=== PATIENT | female | born 1970 | race Caucasian/White ===

== ENCOUNTER 2018-10-15 13:27 | Emergency (ER) | payer OTHER ==
[~2018-10-15] VITALS: Ht 157.5 cm; Wt 79.4 kg
--- NOTE | 2018-10-15 13:40 | NUR ---
PATIENT ARRIVED AT UNIT [facility]. A&O X 4. NO ACUTE DISTRESS. WITH C/O MIGRAINE HEADACHE STARTED ON FRIDAY, PAIN IS SAME YESTERDAY, PAIN SCALE OF 8/10.
[2018-10-15] MEDS ORDERED: KETOROLAC TROMETHAMINE INJ 30 MG/ML VIAL IV ONE (14:30)
[2018-10-15] MEDS ORDERED: diphenhydrAMINE HCL 50 MG/ML VIAL IV ONE (14:30)
[2018-10-15] MEDS ORDERED: IV NS 0.9% 1,000 ML BAG IV ONE (14:30)
[2018-10-15] MEDS ORDERED: METOCLOPRAMIDE HCL 10 MG/2 ML VIAL IV ONE (14:30)
[2018-10-15] MEDS ORDERED: diphenhydrAMINE HCL 50 MG/ML VIAL ONE (14:40)
[2018-10-15] MEDS ORDERED: METOCLOPRAMIDE HCL 10 MG/2 ML VIAL ONE (14:41)
[2018-10-15] MEDS ORDERED: KETOROLAC TROMETHAMINE INJ 30 MG/ML VIAL ONE (14:41)
--- NOTE | 2018-10-15 15:00 | NUR ---
DR BEARD AT BEDSIDE
[2018-10-15] MEDS ORDERED: ACETAMINOPHEN 325 MG TABLET PO ONE (15:30)
[2018-10-15] MEDS ORDERED: ACETAMINOPHEN ES 500 MG TABLET ONE (15:32)
[2018-10-15 16:22] VITALS: BP 117/68
--- NOTE | 2018-10-15 16:24 | NUR ---
Patient discharged to home in stable condition. Written and verbal after care instructions given. Patient verbalizes understanding of instruction. IV removed. Catheter intact and site benign. Pressure and 4x4 applied to site. No bleeding noted.
== END 2018-10-15 16:23 | disposition home or self-care (01) ==
LOC: ER 13:28
DX: G43.909 Migraine, unspecified, not intractable, without status migrainosus (principal); G89.29 Other chronic pain; M54.9 Dorsalgia, unspecified; M79.7 Fibromyalgia; R53.82 Chronic fatigue, unspecified; Z90.89 Acquired absence of other organs
CPT/HCPCS: 96374; 96375; 99283; J1200; J1885; J2765; J7030